=== PATIENT | female | born 1955 | race Caucasian/White ===

== ENCOUNTER 2016-12-16 17:06 | Inpatient (IN) | payer MEDICAID ==
[~2016-12-16] VITALS: Ht 172.7 cm; Wt 68.4 kg
[2016-12-16 18:02] LABS: ASPARTATE AMINO TRANSFERASE 12 U/L (15-37); BLOOD UREA NITROGEN 8 mg/dL (7-18)
[2016-12-16] MEDS ORDERED: SODIUM CHLORIDE 0.9% 1,000ML IVBOLUS ONE (21:00)
[2016-12-16] MEDS ORDERED: METF500T4 PO (21:02)
[2016-12-16] MEDS ORDERED: LANTUS (21:03)
[2016-12-16] MEDS ORDERED: ONDANSETRON 2MG/ML, 2ML ONE (21:06)
[2016-12-16] MEDS ORDERED: HYDROmorphone 1 MG/ML, 1ML ONE (21:06)
[2016-12-16] MEDS: HYDROmorphone 1 MG/ML, 1ML IVPush PRN ×2 (21:18→21:37)
[2016-12-16] MEDS ORDERED: IBUPROFEN 200 MG TABLET ONE (21:24)
[2016-12-16] MEDS ORDERED: CEFTRIAXONE PMX 1GM/50ML 50 ML ONE (21:24)
[2016-12-16] MEDS ORDERED: CEFTRIAXONE 1,000 MG IV ONE (21:30)
[2016-12-16] MEDS ORDERED: IBUPROFEN 200 MG TABLET PO ONE (21:30)
[2016-12-16] MEDS ORDERED: ONDANSETRON 2MG/ML, 2ML IVPush ONE (21:30)
[2016-12-16] MEDS ORDERED: LABETALOL 5MG/ML, 20ML IVPush PRN (22:30)
[2016-12-16] MEDS ORDERED: BISACODYL 10 MG SUPP PR PRN (22:30)
[2016-12-16] MEDS ORDERED: TRAZODONE 50MG TABLET PO PRN (22:30)
[2016-12-16] MEDS: ENOXAPARIN 40 MG/0.4 ML SQ SCH (23:42)
[2016-12-17] MEDS: SODIUM CHLORIDE 0.9% 1,000 ML IV SCH ×4 (00:01→23:28)
[2016-12-17] MEDS: INSULIN ASPART 100 UNITS/ML, PEN SQ-INSULIN SCH ×5 (00:56→20:25)
[2016-12-17] MEDS: CEFTRIAXONE 2 GM in SODIUM CHLORIDE 0.9% 50 ML IV SCH ×2 (01:11→09:10)
[2016-12-17 02:00] VITALS: BP 120/79
[2016-12-17 06:39] LABS: ASPARTATE AMINO TRANSFERASE 131 U/L (15-37); BLOOD UREA NITROGEN 9 mg/dL (7-18)
[2016-12-17] MEDS ORDERED: INSULIN ASPART 100 UNITS/ML, PEN SQ-INSULIN SCH (07:00)
[2016-12-17] MEDS ORDERED: POTASSIUM CHLORIDE 20 MEQ TAB.ER.PRT PO ONE (07:30)
[2016-12-17] MEDS: metFORMIN 500 MG TABLET PO SCH ×2 (08:17→16:17)
[2016-12-17 08:18] VITALS: BP 120/76
[2016-12-17] MEDS: INSULIN DETEMIR 100 UNITS/ML, PEN SQ-INSULIN SCH ×2 (09:10→20:48)
[2016-12-17 14:00] VITALS: BP 127/80
[2016-12-17 20:14] VITALS: BP 120/74
[2016-12-17] MEDS ORDERED: ONDANSETRON 2MG/ML, 2ML IVPush PRN (20:30)
[2016-12-17] MEDS: ENOXAPARIN 40 MG/0.4 ML SQ SCH (20:50)
[2016-12-17] MEDS ORDERED: KETOROLAC 30 MG/1 ML IVPush ONE (22:00)
[2016-12-17] MEDS: POLYETHYLENE GLYCOL 17 GM PACKET PO PRN (22:05)
[2016-12-18 01:47] VITALS: BP 125/72
[2016-12-18 05:21] LABS: BLOOD UREA NITROGEN 6 mg/dL (7-18)
[2016-12-18 05:26] LABS: ASPARTATE AMINO TRANSFERASE 150 U/L (15-37)
[2016-12-18 06:47] VITALS: BP 115/72
[2016-12-18] MEDS: CEFTRIAXONE 2 GM in SODIUM CHLORIDE 0.9% 50 ML IV SCH (09:00)
[2016-12-18] MEDS: SITAGLIPTIN 25MG TABLET PO SCH (09:30)
[2016-12-18] MEDS: LEVOFLOXACIN/PMX 500MG/100ML 100 ML IV SCH (10:12)
[2016-12-18] MEDS: INSULIN DETEMIR 100 UNITS/ML, PEN SQ-INSULIN SCH ×2 (10:12→21:42)
[2016-12-18] MEDS: INSULIN ASPART 100 UNITS/ML, PEN SQ-INSULIN SCH ×4 (10:12→21:42)
[2016-12-18] MEDS: metFORMIN 500 MG TABLET PO SCH ×2 (10:13→17:11)
[2016-12-18] MEDS: CITALOPRAM 10 MG TABLET PO SCH (10:13)
[2016-12-18] MEDS: POLYETHYLENE GLYCOL 17 GM PACKET PO PRN (10:22)
[2016-12-18 12:36] VITALS: BP 119/71
[2016-12-18 20:00] VITALS: BP 131/71
[2016-12-18] MEDS: ENOXAPARIN 40 MG/0.4 ML SQ SCH (21:42)
[2016-12-18] MEDS: DOCUSATE 100 MG CAPSULE PO PRN (22:10)
[2016-12-19 01:29] VITALS: BP 114/69
[2016-12-19 04:56] VITALS: BP 137/73
[2016-12-19 06:00] LABS: ASPARTATE AMINO TRANSFERASE 42 U/L (15-37); BLOOD UREA NITROGEN 8 mg/dL (7-18)
[2016-12-19 06:02] LABS: ACETAMINOPHEN < 2 mcg/mL (10-30)
[2016-12-19 06:45] VITALS: BP 121/70
[2016-12-19] MEDS: INSULIN ASPART 100 UNITS/ML, PEN SQ-INSULIN SCH ×4 (07:00→20:25)
[2016-12-19 08:25] LABS: HEPATITIS C VIRUS ANTIBODY Nonreactive (Nonreactive)
[2016-12-19] MEDS: SITAGLIPTIN 25MG TABLET PO SCH (09:25)
[2016-12-19] MEDS: LEVOFLOXACIN/PMX 500MG/100ML 100 ML IV SCH (09:25)
[2016-12-19] MEDS: CITALOPRAM 10 MG TABLET PO SCH (09:25)
[2016-12-19] MEDS: metFORMIN 500 MG TABLET PO SCH ×2 (09:25→17:31)
[2016-12-19] MEDS: INSULIN DETEMIR 100 UNITS/ML, PEN SQ-INSULIN SCH ×2 (09:26→20:25)
[2016-12-19 12:26] VITALS: BP 123/67
[2016-12-19] MEDS: POLYETHYLENE GLYCOL 17 GM PACKET PO PRN (17:37)
[2016-12-19] MEDS: DOCUSATE 100 MG CAPSULE PO PRN (17:37)
[2016-12-19 18:37] VITALS: BP 145/80
[2016-12-19] MEDS: ENOXAPARIN 40 MG/0.4 ML SQ SCH (20:25)
[2016-12-20 01:08] VITALS: BP 132/74
[2016-12-20 05:09] LABS: BLOOD UREA NITROGEN 8 mg/dL (7-18)
[2016-12-20 05:12] LABS: ASPARTATE AMINO TRANSFERASE 35 U/L (15-37)
[2016-12-20 06:52] VITALS: BP 119/73
[2016-12-20] MEDS ORDERED: LANTUS (07:26)
[2016-12-20] MEDS ORDERED: LEVO500T33 PO (07:26)
[2016-12-20] MEDS ORDERED: METF500T4 PO (07:26)
[2016-12-20] MEDS: INSULIN ASPART 100 UNITS/ML, PEN SQ-INSULIN SCH (07:34)
[2016-12-20] MEDS: metFORMIN 500 MG TABLET PO SCH (08:56)
[2016-12-20] MEDS: LEVOFLOXACIN/PMX 500MG/100ML 100 ML IV SCH (08:56)
[2016-12-20] MEDS: INSULIN DETEMIR 100 UNITS/ML, PEN SQ-INSULIN SCH (08:57)
[2016-12-20] MEDS: SITAGLIPTIN 25MG TABLET PO SCH (08:57)
== END 2016-12-20 11:22 | disposition home or self-care (01) | DRG 871 ==
LOC: ED 19:25 → EDIP 21:32 → 4NOR 22:43 → 3NE 12-18 06:44 → DCLOUNGE 12-20 11:03
PROVIDERS: ADMIT Internal Medicine
DX: A41.9 Sepsis, unspecified organism (principal); E43 Unspecified severe protein-calorie malnutrition; N10 Acute pyelonephritis; E11.65 Type 2 diabetes mellitus with hyperglycemia; F12.10 Cannabis abuse, uncomplicated; F17.210 Nicotine dependence, cigarettes, uncomplicated; F32.9 Major depressive disorder, single episode, unspecified; K76.0 Fatty (change of) liver, not elsewhere classified; B96.20 Unspecified Escherichia coli [E. coli] as the cause of diseases classified elsewhere; T36.1X5A Adverse effect of cephalosporins and other beta-lactam antibiotics, initial encounter; F43.21 Adjustment disorder with depressed mood; K59.00 Constipation, unspecified; Z63.4 Disappearance and death of family member; Z79.4 Long term (current) use of insulin; Z79.84 Long term (current) use of oral hypoglycemic drugs; Z88.0 Allergy status to penicillin; Z88.5 Allergy status to narcotic agent; Z88.6 Allergy status to analgesic agent; Z71.6 Tobacco abuse counseling; Z71.51 Drug abuse counseling and surveillance of drug abuser; Z90.89 Acquired absence of other organs; Z90.49 Acquired absence of other specified parts of digestive tract; Z68.22 Body mass index [BMI] 22.0-22.9, adult
CPT/HCPCS: 36415; 71010; 76700; 80053; 80074; 80307; 81001; 82962; 83036; 83735; 84100; 84439; 84443; 85025; 87077; 87086; 87186; 93005; 96365; 96375; J0696; J1170; J1650; J1815; J1885; J1956; J2405; J7030

== ENCOUNTER 2017-08-11 03:27 | Emergency (ER) | payer SELFPAY ==
[~2017-08-11] VITALS: Ht 167.6 cm; Wt 64.6 kg
[~2017-08-11 03:27] MED LIST: LANTUS; LEVO500T47 PO; METF500T4 PO
[2017-08-11 03:29] VITALS: BP 168/96
[2017-08-11] MEDS ORDERED: CLINDAMYCIN 300 MG CAPSULE PO ONE (04:00)
[2017-08-11] MEDS ORDERED: CLINDAMYCIN 300 MG CAPSULE ONE (04:03)
== END 2017-08-11 04:21 | disposition home or self-care (01) ==
LOC: ED 04:14
DX: H60.92 Unspecified otitis externa, left ear (principal); H60.502 Unspecified acute noninfective otitis externa, left ear; H66.92 Otitis media, unspecified, left ear; E11.9 Type 2 diabetes mellitus without complications; F17.200 Nicotine dependence, unspecified, uncomplicated; Z88.0 Allergy status to penicillin; Z88.5 Allergy status to narcotic agent
CPT/HCPCS: 99283

== ENCOUNTER 2019-09-01 13:27 | Emergency (ER) | payer MEDICARE, OTHER ==
[~2019-09-01] VITALS: Ht 167.6 cm; Wt 61.4 kg
[~2019-09-01 13:27] MED LIST changes: +METF500T17 PO; -METF500T4 PO
[2019-09-01 14:05] VITALS: BP 138/74
--- NOTE | 2019-09-01 15:41 | NUR ---
PT IN RADIOLOGY. WILL RETURN TO ROOM 13 FROM LOBBY STATUS AFTER SCAN COMPLETE.
--- NOTE | 2019-09-01 15:55 | NUR ---
PT TO ROOM FROM XR, UPRIGHT ON GURNEY AWAKE & COMFORTABLE AT THIS TIME, RESPONDS APPROP TO STAFF, NAD, COMFORT MEASURES PROVIDED, CALL LIGHT WITHIN REACH.
[2019-09-01 16:08] LABS: BASOPHILS # (AUTO) 0.08 x10^3/uL (0-0.1); BASOPHILS % (AUTO) 1 % (0-1); EOSINOPHILS # (AUTO) 0.24 x10^3/uL (0-0.4); EOSINOPHILS % (AUTO) 3 % (1-7); LYMPHOCYTES % (AUTO) 26 % (22-44); MD NO; MEAN CORPUSCULAR HEMOGLOBIN 30.5 pg (27.0-34.8); MEAN CORPUSCULAR HGB CONC 33.8 g/dL (32.4-35.8); MEAN CORPUSCULAR VOLUME 90.2 fL (80-100); MEAN PLATELET VOLUME 9.6 fL (7.4-10.4); MONOCYTES # (AUTO) 0.81 x10^3/uL (0.2-0.8); MONOCYTES % (AUTO) 11 % (2-9); NEUTROPHILS # (AUTO) 4.54 x10^3/uL (1.8-6.8); NEUTROPHILS % (AUTO) 59 % (42-75); PLATELET COUNT 289 x10^3/uL (130-400); RED BLOOD COUNT 4.85 x10^6/uL (3.82-5.3); RED CELL DISTRIBUTION WIDTH 13.5 % (9.6-15.2)
[2019-09-01 16:20] LABS: ALBUMIN 3.7 g/dL (3.4-5.0); ANION GAP 6 mmol/L (5-15); CALCIUM 9.5 mg/dL (8.5-10.1); CHLORIDE 105 mmol/L (98-107)
[2019-09-01 16:21] LABS: CREATININE 0.96 mg/dL (0.55-1.02)
--- NOTE | 2019-09-01 17:04 | NUR ---
PT REMAINS UPRIGHT ON GURNEY AWAKE & COMFORTABLE, RESPONDS APPROP TO STAFF, NAD, COMFORT MEASURES PROVIDED, CALL LIGHT WITHIN REACH, AWAITING ERP UPDATE.
--- NOTE | 2019-09-01 18:14 | NUR ---
Patient given discharge instructions and Rx, they have confirmed that they understand the instructions. Patient ambulatory with steady gait.
== END 2019-09-01 18:59 | disposition home or self-care (01) ==
LOC: ED 14:27
DX: E11.65 Type 2 diabetes mellitus with hyperglycemia (principal); B35.3 Tinea pedis; E11.622 Type 2 diabetes mellitus with other skin ulcer; M79.661 Pain in right lower leg; Z90.49 Acquired absence of other specified parts of digestive tract; Z90.89 Acquired absence of other organs
CPT/HCPCS: 36415; 80048; 82040; 85025; 99285

== ENCOUNTER 2019-09-06 14:28 | Emergency (ER) | payer MEDICARE, OTHER ==
[~2019-09-06] VITALS: Ht 167.6 cm; Wt 61.6 kg
[2019-09-06 14:51] VITALS: BP 101/58
[2019-09-06 15:53] LABS: RAPID INFLUENZA A Negative (Negative); RAPID INFLUENZA B Negative (Negative)
--- NOTE | 2019-09-06 16:21 | NUR ---
Patient/Caregiver given discharge instructions and they have confirmed that they understand the instructions. Patient ambulatory with steady gait. PT LEFT WITH ALL PERSONAL BELONGINGS.
== END 2019-09-06 16:22 | disposition home or self-care (01) ==
LOC: ED 16:00
DX: J06.9 Acute upper respiratory infection, unspecified (principal); J02.9 Acute pharyngitis, unspecified; E11.9 Type 2 diabetes mellitus without complications
CPT/HCPCS: 71046; 87081; 87400; 87880; 99284

== ENCOUNTER 2020-04-28 18:55 | Emergency (ER) | payer MEDICARE, MEDICAID ==
[~2020-04-28] VITALS: Ht 167.6 cm; Wt 62.0 kg
[2020-04-28] MEDS ORDERED: DIPH,PERTUSS(ACELL),TET VAC/PF 0.5 ML IM-VACC ONE ×3 (19:30→21:28)
[2020-04-28] MEDS ORDERED: NEOSPORIN OINT. PKT 1 PACKET ONE ×2 (21:33→21:37)
--- NOTE | 2020-04-28 21:46 | NUR ---
CC OF PAPER CUT ON L THUMB THAT HAS WORSENED. 10 PAIN.
[2020-04-28 22:00] VITALS: BP 100/61
== END 2020-04-28 22:02 | disposition home or self-care (01) ==
LOC: ED 19:30
DX: S61.011A Laceration without foreign body of right thumb without damage to nail, initial encounter (principal); E11.9 Type 2 diabetes mellitus without complications; F17.210 Nicotine dependence, cigarettes, uncomplicated; Z90.49 Acquired absence of other specified parts of digestive tract; W45.8XXA Other foreign body or object entering through skin, initial encounter; Y93.89 Activity, other specified; Y92.69 Other specified industrial and construction area as the place of occurrence of the external cause; Y99.8 Other external cause status
CPT/HCPCS: 29130; 90471; 90715; 99283; 99406

== ENCOUNTER 2020-05-07 16:39 | Emergency (ER) | payer MEDICARE, MEDICAID ==
[~2020-05-07] VITALS: Ht 167.6 cm; Wt 63.7 kg
[2020-05-07] MEDS ORDERED: IBUPROFEN 600 MG TABLET ONE (18:53)
[2020-05-07 18:56] VITALS: BP 138/86
[2020-05-07] MEDS ORDERED: IBUPROFEN 600 MG TABLET PO ONE (19:30)
== END 2020-05-07 19:04 | disposition home or self-care (01) ==
LOC: ED 17:40
DX: S20.211A Contusion of right front wall of thorax, initial encounter (principal); E11.9 Type 2 diabetes mellitus without complications; F17.210 Nicotine dependence, cigarettes, uncomplicated; R00.0 Tachycardia, unspecified; Z90.89 Acquired absence of other organs; Z90.49 Acquired absence of other specified parts of digestive tract; W01.198A Fall on same level from slipping, tripping and stumbling with subsequent striking against other object, initial encounter; Y93.89 Activity, other specified; Y92.481 Parking lot as the place of occurrence of the external cause; Y99.8 Other external cause status
CPT/HCPCS: 99283